=== PATIENT | male | born 1955 | race Caucasian/White ===

== ENCOUNTER 2016-06-25 21:19 | Emergency (ER) | payer OTHER, MEDICAID ==
[~2016-06-25] VITALS: Ht 200.7 cm; Wt 81.6 kg
[2016-06-25 21:19] VITALS: BP 113/76; PULSE 75; RESP 17; TEMP 98.2; O2SAT 97
--- NOTE | 2016-06-25 21:19 | NUR ---
Patient to ER bed 4 to gown for evaluation. Side rails up. Report given to AALIYAH Mae.
--- NOTE | 2016-06-25 21:25 | NUR ---
ER at bedside examining patient.
[2016-06-25] MEDS ORDERED: ASPIRIN 325 MG TABLET PO ONE (21:30)
[2016-06-25] MEDS ORDERED: NITROGLYCERIN 0.4 MG TAB.SUBL SL ONE (21:30)
[2016-06-25] MEDS ORDERED: MORPHINE 4 MG/ML INJ. SYRINGE IVP ONE (21:30)
--- NOTE | 2016-06-25 21:30 | NUR ---
Patient is stable. Patient states that he has right sided chest pain shooting down right arm x 2 days. Patient denies any shortness of breath. Pain 10/10. States he took nitro x 3 and was still having pain. Denies any other complaints/injuries per patient or as noted.
[2016-06-25] MEDS ORDERED: LORA2TAB95 PO (21:36)
[2016-06-25] MEDS ORDERED: BUPR200T2 PO (21:37)
[2016-06-25] MEDS ORDERED: ASPI81TA2 PO (21:38)
[2016-06-25] MEDS ORDERED: CLOP75TA2 PO (21:38)
[2016-06-25 21:53] LABS: EOSINOPHILS # (AUTO) 0.4 K/uL (0.0-0.4); MEAN CORPUSCULAR HEMOGLOBIN 30 pg (27-31); MEAN CORPUSCULAR HGB CONC 34 % (32-36); MONOCYTES # (AUTO) 0.9 K/uL (0.0-1.0)
[2016-06-25 22:08] LABS: BASOPHILS # (AUTO) 0.1 K/uL (0.0-0.2); BASOPHILS % (AUTO) 1.6 % (0.0-2.0); EOSINOPHILS % (AUTO) 4.9 % (0.0-4.0); HEMATOCRIT 45.5 % (36-54); HEMOGLOBIN 15.3 g/dL (14.0-18.0); LYMPHOCYTES # (AUTO) 2.5 K/uL (1.0-5.5); LYMPHOCYTES % (AUTO) 27.9 % (20.5-51.5); MEAN CORPUSCULAR VOLUME 89 fL (79.0-98.0); MONOCYTES % (AUTO) 9.5 % (1.7-9.3); NEUTROPHILS # (AUTO) 5.1 K/uL (1.8-7.7); NEUTROPHILS % (AUTO) 56.1 % (40.0-70.0); PLATELET COUNT (AUTO) 270 K/uL (130-430); RED CELL DISTRIBUTION WIDTH 13.1 % (9.0-15.0)
[2016-06-25 22:09] LABS: CALCIUM 8.1 mg/dL (8.4-11.0); CREATININE 1.14 mg/dL (0.55-1.30); POTASSIUM 3.6 mmol/L (3.5-5.1)
[2016-06-25 22:13] LABS: PROTHROMBIN TIME 10.4 SECS (9.5-12.5)
[2016-06-25 22:15] LABS: ALBUMIN 3.9 g/dL (3.4-4.8); TOTAL BILIRUBIN 0.3 mg/dL (0.0-1.0); TOTAL PROTEIN, SERUM 7.7 g/dL (6.4-8.3)
[2016-06-25 22:31] LABS: BILIRUBIN,URINE NEGATIVE (NEGATIVE); BLOOD, URINE NEGATIVE (NEGATIVE); CLARITY/URINE CLEAR (CLEAR); COLOR,URINE YELLOW (YELLOW); GLUCOSE,URINE NEGATIVE (NEGATIVE); KETONES,URINE NEGATIVE (NEGATIVE); LEUKOCYTE ESTERASE ,URINE NEGATIVE (NEGATIVE); NITRITE, URINE NEGATIVE (NEGATIVE); PROTEIN URINE NEGATIVE (NEGATIVE); UROBILINOGEN,URINE 0.2 (0.2-1.0)
[2016-06-25 22:45] LABS: BARBITURATE, URINE NEGATIVE (NEG <=200); BENZODIAZEPINE, URINE NEGATIVE (NEG <=150); CANNABINOID, URINE NEGATIVE (NEG <=50); COCAINE, URINE NEGATIVE (NEG <=150); METHAMPHETAMINES SCREEN,URINE NEGATIVE (NEG <=500); OPIATE, URINE POSITIVE (NEG <=100); PHENCYCLIDINE SCREEN,URINE NEGATIVE (NEG <=25); UR TRICYCLIC ANTIDEPRESSANTS NEGATIVE (NEG <=300); URINE AMPHETAMINE NEGATIVE (NEG <=500); URINE METHADONE NEGATIVE (NEG <=200); URINE OXYCODONE SCREEN NEGATIVE (NEG <=100); URINE PROPOXYPHENE SCREEN NEGATIVE (NEG <=300)
[2016-06-25 23:21] VITALS: BP 118/62; PULSE 74; RESP 18; TEMP 98.2; O2SAT 100
--- NOTE | 2016-06-25 23:21 | NUR ---
Patient given written and verbal discharge instructions and verbalizes understanding. ER MD discussed with patient the results and treatment provided. Patient in stable condition. ID arm band removed. IV catheter removed intact and dressing applied, no active bleeding. No Rx given. Patient educated on pain management and to follow up with PMD in 2 days. Pain Scale 0/10 Opportunity for questions provided and answered.
== END 2016-06-25 23:21 | disposition home or self-care (01) ==
LOC: SED 21:19
DX: R07.89 Other chest pain (principal); F10.129 Alcohol abuse with intoxication, unspecified; F11.10 Opioid abuse, uncomplicated; Z79.82 Long term (current) use of aspirin
CPT/HCPCS: 36415; 71010; 80053; 80307; 81003; 82550; 84484; 85025; 85610; 85730; 93005; 96374; 99285; G0482; J2270